=== PATIENT | female | born 1980 | race Caucasian/White ===

== ENCOUNTER 2024-09-11 06:38 | Day surgery (SDC) | payer MEDICARE, MEDICAID, SELFPAY ==
[2024-09-11] VITALS (10 sets, daily range): BP systolic 109–119; BP diastolic 66–90; PULSE 64–82; RESP 14–16; TEMP 36.2–36.3; O2SAT 97–100; BMI 30.8
--- NOTE | 2024-09-11 | CONE_PTH ---
PATIENT: HARDEEP MARIANO LOC: [facility] – [place] U#:[id number] AGE/SX: 44/F ROOM: RE09/11/[address]: Dr. Nancy Rabago MD : 1980 BED: DIS: 09/11/2024 SPEC #: [id number] RECD: 09/11/24 11:21 STATUS: JARROD REShama #: [id number] NAREN: 09/11/24 00:[address]: Nancy Rabago DEPT: SURGICAL PATHOLOGY RECD BY: Teddy Mtz ENTERED: 09/11/24 11:22 SP TYPE: Leep Cone TONYA DR: Dr. Chico Paredes, DO Tissues: A - UTERINE CERVIX LEEP B - Endometrial cavity Procedures: Immunohistochemical Stains Surgery Specimen Level IV Surgery Specimen Level V HEADER OPERATION: Leep cone PRE-OP DIAGNOSIS: Dysplasia of cervix, low grade (DAVID I), high risk HPV infection, encounter for IUD insertion TISSUE SUBMITTED: A- Ecto cervix, B- Endocervical curettings MICROSCOPIC DIAGNOSIS A: ECTOCERVIX, LEEP: * Low grade AMPARO (mild dysplasia/HPV, DAVID 1) involving an ectocervical edge of the tissue. * IHC for p16 is negative. B: ENDOCERVIX, CURETTAGE: * Scant benign endocervical epithelium. MICROSCOPIC DESCRIPTION Slides are reviewed. These tests were developed and their performance characteristics determined by [facility]. They may not have been cleared or approved by the U.S. Food and Drug Administration. The FDA has determined that such clearance or approval is not necessary. The above immunohistochemical/dualISH markers are ordered and reviewed by the Pathologist. GROSS DESCRIPTION A: Received in fixative is one container labeled with the patient's name and designated Ectocervix. The specimen consists of 1 roughly rectangular shaped, unoriented LEEP specimen measuring 2 x 1 x 0.8 cm. One surface is smooth and shiny, consistent with ectocervical mucosa. One of the long sides will be inked yellow and all other margins are inked blue. [facility], later [facility] 09/12/24 B: Received in fixative is one container labeled with the patient's name and designated Endocervical curettings. The specimen consists of a small amount of mucoid white-vora material on a piece of gauze. The material has aggregate measurements of 8 x 5 x 2 mm. It is scraped off and totally submitted in 1 cassette. [facility] 09/12/24 CPT:00006, 13232, 10244
[2024-09-11] MEDS: Acetaminophen 500 MG Tablet 1000 MG PO (07:16)
--- NOTE | 2024-09-11 07:47 | PCM.PRE.AN2 ---
ASA Classification* ASA Classification ASA Classification: 2 (Patient has history of autism and bipolar disorder, but was cooperative in preop. Tolerated multiple IV attempts) Assessment & Plan Anesthesia* Anesthesia Assessment Anesthesia Assessment: Discussed sedation and/or anesthesia options, risks, benefits, and alternatives with patient/parents/legal guardian/POA. Questions invited. The patient/parents/legal guardian/POA seems to understand and agrees to proceed with anesthesia plan. Reviewed the physical assessment, medical history, allergy history and patient home medications list prior to surgery/procedure/anesthetic and documented any changes. Performed airway and anesthesia risk assessments. Anesthesia Type Anesthesia Type: General History Source History Obtained from:: Patient, Chart and Parent/ Guardian Anesthesia Focused Assessment* Temperature: 97.4 F Pulse Rate: 64 Blood Pressure: 119/84 Respiratory Rate: 14 Pulse Ox: 100 Oxygen Delivery Method: Room Air Airway Assessment Mouth opens: >3 cm Mallampati Score: III Teeth Condition: Intact Neck Range of motion (ROM): Full ROM Focused Labs Anesthesia Preop lab: CBC CHEMISTRY COAG Urine Test Pending 09/11/24 07:03 09/11/24 Pre-Assessment Diagnosis/Proposed Procedure Planned Operative Procedure(s): Leep Cone, IUD insertion Anesthesia History 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 When Was Last Pacemaker Check QUESTION #4 FULL TEXT: You/Your Family Experience fever (hyperthermia) with Anesthesia Last Oral Intake Last Oral intake: Last Oral Intake NPO since 19:00 09/11/24 07:11 Meds taken in AM with sips of No 09/11/24 07:11 water? Meds patient instructed to take am of surgery PONV PONV - data processing equipment repairer: PONV - data processing equipment repairer Female Yes 09/05/24 10:17 HX of Motion Sickness No 09/05/24 10:17 HX of N/V After Surgery No 09/05/24 10:17 Non-Smoker Yes 09/05/24 10:17 Duration of Surgery greater No 09/05/24 10:17 than 60 minutes Number of Risk Factors 2 09/05/24 10:17 PONV Score Moderate Risk 09/05/24 10:17 Height & Weight Height & Weight: Anesthesia: Height & Weight Height 5 ft 4 in 09/11/24 07:11 Weight: 81.5 kg 09/11/24 07:11 Body Mass Index (BMI) 30.8 09/11/24 07:11 Respiratory Assessment Respiratory Assessment - data processing equipment repairer: Respiratory Tract Infection Hx - data processing equipment repairer Hx Respiratory Tract Infection No 09/05/24 10:17 STOP Sleep Apnea STOP Sleep Apnea - data processing equipment repairer: STOP Sleep Apnea - data processing equipment repairer Hx Hypertension No 09/05/24 10:17 Hx Sleep Apnea No 09/05/24 10:17 CPAP BIPAP Do you snore loudly (louder No 09/05/24 10:17 than talking or can be heard Do you often feel tired/ No 09/05/24 10:17 fatigued/ sleepy during daytime? Has anyone observed you stop No 09/05/24 10:17 breathing during sleep? STOP Results Negative 09/05/24 10:17 QUESTION #5 FULL TEXT : Do you snore loudly (louder than talking or can be heard through closed doors)? 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 Specify any problems Hx of Preganancy in last 3 No 09/05/24 10:17 Months Nurse Filling Out Transfusion VCHRISTIN 09/05/24 10:17 & Questions: Date: 09/05/24 09/05/24 10:17 Time: 10:18 09/05/24 10:17 Patient unable to answer at this time (ie. confused, unrespo /Reproduction History /Reproductive History - data processing equipment repairer: /Reproductive Hx- data processing equipment repairer Hx Now No 09/05/24 10:17 Gestational Age (in weeks): EDC: Hx Hx Para Hx Section SAB No 09/05/24 10:17 Active Medications Active Medications: Current Medications Generic Name Dose Route Start Last Admin Trade Name Freq PRN Reason Stop Dose Admin Acetaminophen 1,000 mg 09/11/24 08:25 09/11/24 07:16 Acetaminophen 500 Mg Tablet PO 09/11/24 08:26 1,000 mg PREOP ONE Administration Levonorgestrel 1 each 09/11/24 08:25 Levonorgestrel Iud (Liletta) INTRA-UTER 09/11/24 08:26 X1 ONE PFSH Medical History Wears glasses Bipolar disorder Depression Anxiety High cholesterol Migraine headache Injury of head and neck History of IBS Gastric reflux Non-smoker Home Medications ?Medication ?Instructions ?Recorded ?Last Taken ?Type onsyboq-jubcukgtxnmki-dekzxavq 250 1 tab PO Q6H PRN pain 09/05/24 09/04/24 History mg-250 mg-65 mg tablet (Excedrin Extra Strength) cholecalciferol (vitamin D3) 25 25 mcg PO DAILY 09/05/24 Unknown History mcg (1,000 unit) capsule (Vitamin D3) darifenacin 15 mg tablet,extended 15 mg PO DAILY 09/05/24 Unknown History release 24 hr dicyclomine 20 mg tablet 40 mg PO Q6H 09/05/24 Unknown History erenumab-aooe 70 mg/mL 70 mg subcut QMONTH 09/05/24 08/27/24 History subcutaneous auto-injector (Aimovig Autoinjector) fluoxetine 20 mg capsule 60 mg PO DAILY 09/05/24 Unknown History lamotrigine 100 mg tablet 100 mg PO DAILY 09/05/24 Unknown History rosuvastatin 10 mg tablet 10 mg PO QHS 09/05/24 Unknown History sumatriptan succinate 100 mg tablet 100 mg PO Q2H PRN PRN migraine 09/05/24 Unknown History Allergy/AdvReac Type Severity Reaction Status Date / Time erythromycin base Allergy Severe Vomiting Verified 09/11/24 07:09 NSAIDS (Non-Steroidal Allergy Severe Other Verified 09/11/24 07:09 Anti-Inflamma Sulfa (Sulfonamide Allergy Severe Hives Verified 09/11/24 07:09 Antibiotics) Surgical History Hx of eye surgery History of loop electrical excision procedure (LEEP) Social History Smoking Status: Never smoker Review of Systems (Anesthesia) ROS Narrative System reviewed and no additional complaints, except as documented. Physical Exam Const alert, oriented x3 and average body habitus Resp normal respiratory effort, normal air movement and clear to auscultation bilaterally Cardio regular rate, regular rhythm, no murmurs and diaphoretic
[2024-09-11 07:52] LABS: Internal QC Validated? YES +Cl - CLEAR BKGD; Pregnancy, Urine Negative Negative
[2024-09-11] MEDS: Iodine/Potassium Iodide 14ML Bottle 1 DRP TOPICAL (08:58)
[2024-09-11] MEDS: Lidocaine 1%/Epi 1:200 (30ml) 30 ML AMPUL (08:58)
[2024-09-11] MEDS: Levonorgestrel IUD (Liletta) 1 EACH INTRA-UTER (09:05)
[2024-09-11] MEDS: FERRIC SUBSULFATE 8 GM SOLN (09:13)
--- NOTE | 2024-09-11 09:37 | PCM.POST.ANE ---
Anesthesia: Postop Eval I Current Vital Signs Temperature: 97.2 F Pulse Rate: 82 Blood Pressure: 109/75 Respiratory Rate: 14 Pulse Ox: 97 Assessment Airway patent: Yes Spontaneous unlabored respirations: Yes Mental status: Awake and Calm nausea: No Vomiting: No Anesthesia Complication: No Fluid Hydration Crystalloid volume administer (ml): 16 Total IV fluid infused: 16 Progress Note Anesthesia document: Postop Eval 1 completed: Yes
--- NOTE | 2024-09-11 12:34 | POSTOPAN2_ITS ---
Anesthesia Postop Eval I Sum Postop Eval Completion status Anesthesia document: Postop Eval 1 completed: Yes Anesthesia Postop Eval I Summary Anesthesia Postop Eval I Summary: Anesthesia Postop Eval I: Assessment Summary Airway patent Yes 09/11/24 09:38 FURNITURE [email or web address].[email or web address] Spontaneous unlabored Yes 09/11/24 09:38 FURNITURE [email or web address].[email or web address] respirations Mental status Awake,Calm 09/11/24 09:38 FURNITURE [email or web address].GDOTT nausea No 09/11/24 09:38 FURNITURE MAKER.GDOTT Vomiting No 09/11/24 09:38 FURNITURE MAKER.GDOTT Anesthesia Postop Eval I: Fluid Summary Crystalloid volume administer 16 09/11/24 09:38 FURNITURE MAKER.GDOTT (ml) Colloids volume administered ( ml) Blood Product volume administered (ml) Total IV fluid infused 16 09/11/24 09:38 FURNITURE MAKER.GDOTT Anesthesia Postop Eval I: Summary Notes Anesthesia Complication No 09/11/24 09:38 FURNITURE [email or web address].GDOTT Anesthesia Complication Comment: Post-operative progress note Anesthesia: Postop Eval II Evaluation Mental status: Awake Pain Level: 0 nausea: No Vomiting: No Complications Anesthesia Complication: No
--- NOTE | 2024-09-11 12:34 | PCM.POSTANE2 ---
Anesthesia Postop Eval I Sum Postop Eval Completion status Anesthesia document: Postop Eval 1 completed: Yes Anesthesia Postop Eval I Summary Anesthesia Postop Eval I Summary: Anesthesia Postop Eval I: Assessment Summary Airway patent Yes 09/11/24 09:38 SEMAPHORE OPERATOR.[email or web address] Spontaneous unlabored Yes 09/11/24 09:38 SEMAPHORE OPERATOR.GDOTT respirations Mental status Awake,Calm 09/11/24 09:38 SEMAPHORE OPERATOR.GDOTT nausea No 09/11/24 09:38 SEMAPHORE OPERATOR.GDOTT Vomiting No 09/11/24 09:38 SEMAPHORE OPERATOR.GDOTT Anesthesia Postop Eval I: Fluid Summary Crystalloid volume administer 16 09/11/24 09:38 SEMAPHORE OPERATOR.GDOTT (ml) Colloids volume administered ( ml) Blood Product volume administered (ml) Total IV fluid infused 16 09/11/24 09:38 SEMAPHORE OPERATOR.GDOTT Anesthesia Postop Eval I: Summary Notes Anesthesia Complication No 09/11/24 09:38 SEMAPHORE OPERATOR.GDOTT Anesthesia Complication Comment: Post-operative progress note Anesthesia: Postop Eval II Evaluation Mental status: Awake Pain Level: 0 nausea: No Vomiting: No Complications Anesthesia Complication: No
== END 2024-09-11 10:54 | disposition home or self-care (01) ==
LOC: SDC 06:42 → AC 06:45
PROVIDERS: PCP Family Medicine; Referring Provider Obstetrics & Gynecology; Visit Provider Obstetrics & Gynecology
PROC: 0UBC7ZZ Excision of Cervix, Via Natural or Artificial Opening (ICD-10-PCS; CPT 57522; principal; 2024-09-11 08:10)
DX: N87.0 Mild cervical dysplasia (principal); F31.9 Bipolar disorder, unspecified; Z30.430 Encounter for insertion of intrauterine contraceptive device; R87.810 Cervical high risk human papillomavirus (HPV) DNA test positive; F84.0 Autistic disorder; R62.50 Unspecified lack of expected normal physiological development in childhood
CPT/HCPCS: 57522; 58300; 00940; 81025; 88305; 88307; 88342

== ENCOUNTER 2025-01-15 07:59 | Day surgery (SDC) | payer MEDICARE, MEDICAID, SELFPAY ==
--- NOTE | 2025-01-07 09:49 | HP.PCM_ITS ---
History and Physical Date of Admission: 01/15/25 HPI: The patient is a 44 year old female presenting for pre-operative visit. She is scheduled for Hysteroscopy with endometrial ablation and laparoscopic bilateral salpingectomy, for sterilization and aub on 01/15/25. Procedure discussed along with risks, benefits and complications. Other alternatives discussed for management. Consent form signed? No. ? ? PAST MEDICAL HISTORY PAST MEDICAL HISTORYDiagnosisDate?Autism spectrum (HCC)??Bipolar 2 disorder (HCC)??Developmental delay??High grade squamous intraepithelial lesion (HGSIL), grade 3 DAVID, on biopsy of cervix??Incontinence of urine??Stool incontinence? ? ? PAST SURGICAL HISTORY PAST SURGICAL HISTORYProcedureLateralityDate?CERVIX UTERI CONIZA LP ELCTRO EXCI?09/11/2024?leep?INSERTION OF IUD?09/11/2024?Liletta?PAST SURGICAL HISTORY OF?08/2019?LEEP?PAST SURGICAL HISTORY OF???eye surgery as a child?VAGINOSCOPY??? multiple ? ? ? CURRENT MEDICATIONS Current Outpatient MedicationsMedicationSigDispenseRefill?dicyclomine (BENTYL) 20 mg tabletTake 20 mg by mouth four times daily.???famotidine (PEPCID) 20 mg tabletTake 20 mg by mouth.???hyoscyamine sublingual (LEVSIN SL) 0.125 mgTake 0.125 mg by mouth every 6 hours as needed.???rosuvastatin (CRESTOR) 10 mg tabletTake 10 mg by mouth.???SUMAtriptan (IMITREX) 100 mg tabletTAKE 1 (ONE) TABLET BY MOUTH EVERY 2 (TWO) HOURS NEEDED FOR MIGRAINE MAX OF 200 MG IN 24HRS???Tpprevc-Iczzorrormdpr-Vjnhdgne 250-250-65 mg per tabletTake 2 tablets by mouth at bedtime as needed.???erenumab-aooe (AIMOVIG AUTOINJECTOR) 70 mg/mL auto-injectorInject 70 mg subcutaneously.???FLUoxetine (PROZAC) 20 mg capsule?lamoTRIgine (LAMICTAL) 100 mg tablet?darifenacin ER (ENABLEX) 15 mg 24 hr tabletTake 15 mg by mouth.???cholecalciferol, vitamin D3, 10 mcg/5 mL (400 unit/5 mL) liqdTake 50,000 Units by mouth.???No current facility- administered medications for this visit. ? ? ALLERGIES: Erythromycin, Nsaids (Non-Steroidal Anti-Inflammatory Drug), and Sulfa (Sulfonamide Antibiotics) ? PERSONAL HISTORY: SOCIAL HISTORY Social History?Tobacco Use?Smoking status:Never?Smokeless tobacco:NeverVaping Use?Vaping status:Never UsedSubstance Use Topics?Alcohol use:Not Currently?Drug use:Never ? FAMILY HISTORY: FAMILY HISTORY FAMILY HISTORY ProblemRelationAge of Onset?Pancreatic CancerMaternal Grandmother??Colon CancerPaternal great-grandfather? ? ? REVIEW OF SYMPTOMS: GENERAL: denies fevers or chills ENDOCRINOLOGY: has not been on steroids Cardiology : denies palpitations or chest pain Respiratory: denies SOB or cough Hematology: denies history of prolonged bleeding or easy bruising or VTE Allergy: Denies history of personal or family history of allergy to anesthesia ? PHYSICAL EXAMINATION: ? VITALS: There were no vitals taken for this visit. ? GENERAL: The patient is well nourished, well hydrated in no acute distress. , The patient is oriented to time, place, and person. ? IMPRESSION: sterilization request, AUB ? PLAN: The risks/benefits/alternatives and personal involved for the planned hysteroscopy with endometrial ablation and tubal sterilization were reviewed with the patient. Her questions were answered to her satisfaction and she desires to proceed. Consent was signed. I reviewed with her postop instructions and expectations. ? ? I have reviewed and updated past medical and surgical history, medications and allergies Possible HTA vs minvera depeding on size of uterus for endometrial ablation Assessment & Plan Assessment/Plan (1) Sterilization: (2) Menorrhagia: QUALIFIERS: Menorrhagia type: with regular cycle Qualified Code(s): N92.0 - Excessive and frequent menstruation with regular cycle
[2025-01-15] VITALS (8 sets, daily range): BP systolic 110–127; BP diastolic 68–99; PULSE 67–96; RESP 16–18; TEMP 36.4–37; O2SAT 98–100; BMI 30.7
[2025-01-15 08:46] LABS: Hematocrit 44.1 % (37-47); Hemoglobin 15.2 g/dL (12.0-15.0); Mean Corp Hgb Conc 34.5 g/dL (32-36); Mean Corpuscular Volume 96.1 fL (81-99); Mean Platelet Vol. 9.9 fl (6.2-12.0); Platelet Count 215 K/mm3 (150-450); RBC Distribution Width CV 11.8 % (11.6-14.6); RBC Distribution Width SD 41.1 fl (35.1-43.9); Red Blood Count 4.59 M/mm3 (4.2-5.4); White Blood Count 8.8 K/mm3 (4.4-11.0)
[2025-01-15] MEDS: Lactated Ringers 1,000 ML 15 ML IV (08:47)
[2025-01-15] MEDS: Ketorolac 30 MG/ML Syringe IV (08:51)
--- NOTE | 2025-01-15 08:52 | PCM.PRE.AN2 ---
ASA Classification* ASA Classification ASA Classification: 3 Assessment & Plan Anesthesia* Anesthesia Assessment Anesthesia Assessment: Discussed sedation and/or anesthesia options, risks, benefits, and alternatives with patient/parents/legal guardian/POA. Questions invited. The patient/parents/legal guardian/POA seems to understand and agrees to proceed with anesthesia plan. Reviewed the physical assessment, medical history, allergy history and patient home medications list prior to surgery/procedure/anesthetic and documented any changes. Performed airway and anesthesia risk assessments. Anesthesia Type Anesthesia Type: General History Source History Obtained from:: Patient, Chart and Parent/ Guardian Anesthesia Focused Assessment* Temperature: 98.6 F Pulse Rate: 67 Blood Pressure: 124/82 Respiratory Rate: 18 Pulse Ox: 100 Oxygen Delivery Method: Room Air Airway Assessment Mouth opens: >3 cm Mallampati Score: II Neck Range of motion (ROM): Limited ROM Labs Anesthesia Preop lab: CBC WBC 8.8 K/mm3 (4.4-11.0) 01/15/25 08:35 01/15/25 RBC 4.59 M/mm3 (4.2-5.4) 01/15/25 08:35 01/15/25 Hgb 15.2 g/dL (12.0-15.0) H 01/15/25 08:35 01/15/25 Hct 44.1 % (37-47) 01/15/25 08:35 01/15/25 Plt Count 215 K/mm3 (150-450) 01/15/25 08:35 01/15/25 CHEMISTRY COAG Urine Test Negative Negative 09/11/24 07:03 09/11/24 Pre-Assessment Diagnosis/Proposed Procedure Planned Operative Procedure(s): B) Laparoscopic, bilateral salpingectomy, hysteroscopy ablation with cristóbal (POSSIBLE HTA) Anesthesia History 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 When Was Last Pacemaker Check QUESTION #4 FULL TEXT: You/Your Family Experience fever (hyperthermia) with Anesthesia Last Oral Intake Last Oral intake: Last Oral Intake NPO since 19:00 01/15/25 08:43 Meds taken in AM with sips of No 01/15/25 08:43 water? Meds patient instructed to take am of surgery PONV PONV - automotive service assistant: PONV - automotive service assistant Female Yes 01/09/25 10:27 HX of Motion Sickness No 01/09/25 10:27 HX of N/V After Surgery No 01/09/25 10:27 Non-Smoker Yes 01/09/25 10:27 Duration of Surgery greater No 01/09/25 10:27 than 60 minutes Number of Risk Factors 2 01/09/25 10:27 PONV Score Moderate Risk 01/09/25 10:27 Height & Weight Height & Weight: Anesthesia: Height & Weight Height 5 ft 4 in 01/15/25 08:43 Weight: 81.3 kg 01/15/25 08:43 Body Mass Index (BMI) 30.7 01/15/25 08:43 Respiratory Assessment Respiratory Assessment - automotive service assistant: Respiratory Tract Infection Hx - automotive service assistant Hx Respiratory Tract Infection No 01/09/25 10:27 STOP Sleep Apnea STOP Sleep Apnea - automotive service assistant: STOP Sleep Apnea - automotive service assistant Hx Hypertension No 01/09/25 10:27 Hx Sleep Apnea No 01/09/25 10:27 CPAP BIPAP Do you snore loudly (louder No 01/09/25 10:27 than talking or can be heard Do you often feel tired/ No 01/09/25 10:27 fatigued/ sleepy during daytime? Has anyone observed you stop No 01/09/25 10:27 breathing during sleep? STOP Results Negative 01/09/25 10:27 QUESTION #5 FULL TEXT : Do you snore loudly (louder than talking or can be heard through closed doors)? 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 Specify any problems Hx of Preganancy in last 3 No 01/09/25 10:27 Months Nurse Filling Out Transfusion JZOLLINGE 01/09/25 10:27 & Questions: Date: 01/09/25 01/09/25 10:27 Time: 10:29 01/09/25 10:27 Patient unable to answer at this time (ie. confused, unrespo /Reproduction History /Reproductive History - automotive service assistant: /Reproductive Hx- automotive service assistant Hx Now No 01/09/25 10:27 Gestational Age (in weeks): EDC: Hx Hx Para Hx Section SAB No 01/09/25 10:27 Active Medications Active Medications: Current Medications Generic Name Dose Route Start Last Admin Trade Name Freq PRN Reason Stop Dose Admin Acetaminophen 1,000 mg 01/15/25 09:55 01/15/25 08:50 Acetaminophen 500 Mg Tablet PO 01/15/25 09:56 1,000 mg PREOP ONE Administration Lactated Ringer's 1,000 mls @ 15 mls/hr 01/15/25 08:45 01/15/25 08:47 IV 15 mls/hr .Q48H DAWIT Administration Ketorolac Tromethamine 30 mg 01/15/25 09:55 01/15/25 08:51 Ketorolac 30 Mg/Ml Syringe IV 01/15/25 09:56 30 mg PREOP ONE Administration PFSH Medical History Incontinence of urine Incontinence of feces Loose, teeth Cancer Autism Bladder disease Wears glasses Bipolar disorder Depression Anxiety High cholesterol Migraine headache Injury of head and neck History of IBS Gastric reflux Non-smoker Home Medications ?Medication ?Instructions ?Recorded ?Last Taken ?Type bcmrycf-fqkuqwnxzpjay-fawnqheq 250 1 tab PO Q6H PRN pain 09/05/24 09/04/24 History mg-250 mg-65 mg tablet (Excedrin Extra Strength) cholecalciferol (vitamin D3) 25 25 mcg PO DAILY 09/05/24 Unknown History mcg (1,000 unit) capsule (Vitamin D3) darifenacin 15 mg tablet,extended 15 mg PO DAILY 09/05/24 Unknown History release 24 hr dicyclomine 20 mg tablet 40 mg PO Q6H 09/05/24 Unknown History erenumab-aooe 70 mg/mL 70 mg subcut QMONTH 09/05/24 08/27/24 History subcutaneous auto-injector (Aimovig Autoinjector) fluoxetine 20 mg capsule 60 mg PO DAILY 09/05/24 Unknown History lamotrigine 100 mg tablet 100 mg PO DAILY 09/05/24 Unknown History rosuvastatin 10 mg tablet 10 mg PO QHS 09/05/24 Unknown History sumatriptan succinate 100 mg tablet 100 mg PO Q2H PRN PRN migraine 09/05/24 Unknown History norgestimate 0.25 mg-ethinyl 1 tab PO DAILY 01/09/25 Unknown History estradiol 0.035 mg tablet (Kym) Allergy/AdvReac Type Severity Reaction Status Date / Time erythromycin base Allergy Severe Vomiting Verified 01/15/25 08:42 Sulfa (Sulfonamide Allergy Severe Hives Verified 01/15/25 08:42 Antibiotics) Surgical History Hx of eye surgery History of loop electrical excision procedure (LEEP) Social History Smoking Status: Never smoker Review of Systems (Anesthesia) ROS Narrative System reviewed and no additional complaints, except as documented.
[2025-01-15 08:57] LABS: Internal QC Validated? YES +Cl - CLEAR BKGD; Pregnancy, Serum, hCG Quali. NEGATIVE Negative; Record Kit Lot#, Serum Preg. 0000962302
--- NOTE | 2025-01-15 09:45 | FALS_PTH ---
PATIENT: HARDEEP MARIANO LOC: [facility] – [place] U#:[id number] AGE/SX: 44/F ROOM: RE01/15/[address]: Dr. Nancy Rabago MD : 1980 BED: DIS: 01/15/2025 SPEC #: [id number] RECD: 01/15/25 12:51 STATUS: JARROD REQ #: [id number] NAREN: 01/15/25 09:[address]: Nancy Rabago DEPT: SURGICAL PATHOLOGY RECD BY: Deirdre Casillas ENTERED: 01/15/25 14:19 SP TYPE: FALL TUBES OTHR DR: Dr. Chico Paredes, DO Tissues: Fallopian tube Procedures: Surgery Specimen Level II HEADER OPERATION: Laparoscopic, bilateral salpingectomy, dx hysteroscopy PRE-OP DIAGNOSIS: Sterilization, menorrhagia TISSUE SUBMITTED: Bilateral Fallopian Tubes MICROSCOPIC DIAGNOSIS A. Fallopian tubes, bilateral sterilization, menorrhagia salpingectomy: - Complete luminal cross-section confirmed (x2). MICROSCOPIC DESCRIPTION Slides are reviewed. GROSS DESCRIPTION A. Received in formalin labeled with the patient's name and date of . Designated as bilateral fallopian tubes are 2 red-pink fimbriated fallopian tubes devoid of orientation, 5.7- 6.3 cm in length by 0.2-0.4 cm in diameter. No definitive paratubal cysts are identified. Resource Specialist sections are submitted in 2 cassettes. [facility] 01/15/2025 CPT: 72936
--- NOTE | 2025-01-15 10:39 | DCINST_ITS ---
Discharge Instructions DC O2, CPAP, BIPAP needs Home O2 Discharge instructions: No Dressing / Incision Discharge Activity: May Shower and May Take a Tub Bath (in 2 days) Return to work on:: 01/19/25 May resume sexual activity in: 1 week Dressing / Incision Call your doctor if your incision/area has: Sudden Increased Bleeding and Foul Smelling Discharge Call your doctor if you observe: Fever of 101 or Higher Cleanse incision/area with: Soap & Water (Your incisions have skin glue and it can get wet. Leave on until it falls off) Follow Up Care Please Follow Up With: Nancy Rabago MD When: In my office or virtual visit in 1-2 weeks or as needed Test Results: Test results from this visit will be discussed in further detail at your follow- up appointment, if applicable. Discharge Plan Admission Primary Reason for Your Visit: Tubal sterilzation and hysteroscopy Attending Provider: Nancy Rabago Primary Care Provider: [place] Paredes Instructions Print Language: Palestinian Discharge Orders/Prescriptions Prescriptions: No Action norgestimate-ethinyl estradiol [Kym] 0.25-0.035 mg tablet 1 tab PO DAILY sumatriptan succinate 100 mg tablet 100 mg PO Q2H PRN PRN (Reason: migraine) Excedrin Extra Strength 250-250-65 mg tablet 1 tab PO Q6H PRN (Reason: pain) fluoxetine 20 mg capsule 60 mg PO DAILY lamotrigine 100 mg tablet 100 mg PO DAILY Aimovig Autoinjector 70 mg/mL auto-injector 70 mg subcut QMONTH darifenacin 15 mg tablet extended release 24 hr 15 mg PO DAILY dicyclomine 20 mg tablet 40 mg PO Q6H rosuvastatin 10 mg tablet 10 mg PO QHS cholecalciferol (vitamin D3) [Vitamin D3] 25 mcg (1,000 unit) capsule 25 mcg PO DAILY Referrals / Follow Up: Chico Paredes DO [Primary Care Provider] - Disposition Disposition (needs filled in before D/C Order can be placed): Home, Self Care
--- NOTE | 2025-01-15 10:41 | PCM.OPRPT ---
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: Yes Implementation Engineer: Edwar Rudolph Tasks completed by academic assistant: Closing, Insert Trochanter and Retracting Additional executive chef assistant?: No Type of Anesthesia: General RN Documented Start/Stop Times: Operation Date: 01/15/25 09:45 Case Time Into Pre-Op 01/15/25 08:35 Out of Pre-Op 01/15/25 09:42 Anesthesia Start 01/15/25 09:46 Into Room 01/15/25 09:46 Procedure Start 01/15/25 10:10 Procedure Start Time: 10:10 Procedure Stop Time: 10:42 Select all DRAINS/GRAFTS/IMPLANTS that apply: None Estimated Blood Loss: 5 Fluids Replaced: 1200 cc crystalloid Specimen collected: Yes Description of specimen(s) removed: bilateral fallopian tubes Description of surgery: The patient was taken to the operating room where she was prepped and draped in the dorsolithotomy position. Her arms were tucked at the sides and a neurologically safe in neutral position. A weighted speculum was placed in the vagina and the anterior lip of the cervix was grasped with a tenaculum. The cervix was very flush against the anterior vaginal wall. I attempted to dilate the cervix and when I placed the hysteroscope it was noted that there was a uterine perforation. The hysteroscope was removed and the tenaculum was left on the anterior lip of the cervix and the remainder the instruments were removed from the vagina. Attention was turned to the abdomen. All port sites were infiltrated with 0.5% Marcaine before skin incisions were made. A 5 mm intraumbilical incision was made. The anterior abdominal wall was tented up with 2 towel clamps while a 5 mm blade less trocar and sleeve were directly inserted. Intraperitoneal placement was confirmed with the laparoscope. The pneumoperitoneum was created and the underlying abdominal contents were intact. The patient was placed in Trendelenburg. Right and left lower quadrant ports were placed under direct visualization lateral to the inferior epigastric vessels. The bowel was swept away and the above findings were noted. The perforation area was in the posterior fundus of the uterus and was not bleeding and it was very small. The Liletta IUD was noted to be in the posterior cul-de-sac and was grasped with a grasper and removed through a port site. It was not it here would significantly do anything and there were no defects in any organs. It was laying in the posterior cul-de-sac. The left fallopian tube was identified and followed out to the fimbriated edge. The antimesenteric portion of the tube was clamped sealed and transected with the Enseal device. The tube was amputated from the uterus and the pedicles were all confirmed to be hemostatic. The same procedure was performed on the contralateral side. The specimens were brought out through a 5 mm port. The pedicles were again examined and found to be hemostatic. The lateral ports were removed under direct visualization and no active bleeding was noted. The pneumoperitoneum was released. The skin incisions were closed with Monocryl suture in a subcuticular fashion and skin glue. The vaginal instruments were removed and the vaginal sweep was completed by me. The procedure was performed by me with assistance other than as dictated above. All sponge and needle counts were correct and the patient was taken to the recovery room in stable condition. Surgical Findings: normal vagina, very flush cervix, stenotic os, normal tubes and ovaries, normal liver and peritoneal cavity. Uterus is very small, approx 3 cm from cervix to fundus Complications Complications: No Admit VTE Documentation VTE Present on Admission: No VTE Mechan Device Prophylaxis: SCD's VTE Pharm Prophylaxis ordered?: No
--- NOTE | 2025-01-15 11:03 | PCM.POST.ANE ---
Anesthesia: Postop Eval I Current Vital Signs Temperature: 98 F Pulse Rate: 72 Blood Pressure: 127/82 Respiratory Rate: 18 Pulse Ox: 98 Oxygen Delivery Method: Room Air Assessment Airway patent: Yes Spontaneous unlabored respirations: Yes Mental status: Awake and Calm nausea: No Vomiting: No Anesthesia Complication: No Fluid Hydration Crystalloid volume administer (ml): 1,300 Total IV fluid infused: 1,300 Progress Note Anesthesia document: Postop Eval 1 completed: Yes
--- NOTE | 2025-01-15 16:25 | POSTOPAN2_ITS ---
Anesthesia Postop Eval I Sum Postop Eval Completion status Anesthesia document: Postop Eval 1 completed: Yes Anesthesia Postop Eval I Summary Anesthesia Postop Eval I Summary: Anesthesia Postop Eval I: Assessment Summary Airway patent Yes 01/15/25 11:03 [email or web address] Spontaneous unlabored Yes 01/15/25 11:03 [email or web address] respirations Mental status Awake,Calm 01/15/25 11:03 [email or web address] nausea No 01/15/25 11:03 [email or web address] Vomiting No 01/15/25 11:03 [email or web address] Anesthesia Postop Eval I: Fluid Summary Crystalloid volume administer 1,300 01/15/25 11:03 [email or web address] (ml) Colloids volume administered ( ml) Blood Product volume administered (ml) Total IV fluid infused 1,300 01/15/25 11:03 [email or web address] Anesthesia Postop Eval I: Summary Notes Anesthesia Complication No 01/15/25 11:03 [email or web address] Anesthesia Complication Comment: Post-operative progress note Anesthesia: Postop Eval II Evaluation Mental status: Awake and Calm Pain Level: 1 nausea: No Vomiting: No
--- NOTE | 2025-01-15 16:25 | PCM.POSTANE2 ---
Anesthesia Postop Eval I Sum Postop Eval Completion status Anesthesia document: Postop Eval 1 completed: Yes Anesthesia Postop Eval I Summary Anesthesia Postop Eval I Summary: Anesthesia Postop Eval I: Assessment Summary Airway patent Yes 01/15/25 11:03 PLANT [email or web address] Spontaneous unlabored Yes 01/15/25 11:03 PLANT [email or web address] respirations Mental status Awake,Calm 01/15/25 11:03 PLANT [email or web address] nausea No 01/15/25 11:03 PLANT [email or web address] Vomiting No 01/15/25 11:03 [email or web address] Anesthesia Postop Eval I: Fluid Summary Crystalloid volume administer 1,300 01/15/25 11:03 [email or web address] (ml) Colloids volume administered ( ml) Blood Product volume administered (ml) Total IV fluid infused 1,300 01/15/25 11:03 [email or web address] Anesthesia Postop Eval I: Summary Notes Anesthesia Complication No 01/15/25 11:03 [email or web address] Anesthesia Complication Comment: Post-operative progress note Anesthesia: Postop Eval II Evaluation Mental status: Awake and Calm Pain Level: 1 nausea: No Vomiting: No
== END 2025-01-15 12:22 | disposition home or self-care (01) ==
LOC: SDC 08:01 → AC 08:02
PROVIDERS: Anesthesiology; PCP Family Medicine; Referring Provider Obstetrics & Gynecology; Visit Provider Obstetrics & Gynecology
PROC: (CPT 58661; principal; 2025-01-15 09:30)
DX: Z30.2 Encounter for sterilization (principal); N92.0 Excessive and frequent menstruation with regular cycle
CPT/HCPCS: 58661; 00840; 58555; 58301; 84703; 85027; 88302; J2405